=== PATIENT | male | born 1950 | race Caucasian/White ===

== ENCOUNTER 2016-03-07 02:43 | Emergency (ER) | payer MEDICARE, OTHER ==
--- NOTE | 2016-03-07 03:23 | Emergency Department Record ---
History of Present Illness - General Chief Complaint: Hypertension Stated Complaint: HIGH BP Time Seen by Provider: 03/07/16 03:09 Source: Patient Mode of Arrival: Ambulatory Limitations: No limitations - History of Present Illness Initial Comments: pt forgot to take his bp med 21hrs ago and awakened with a headache and found his bp to be over 200. rtoh was behind his eyes. by the time he got here his headache was getting better and his bp was coming down. pt denies any other symptoms MD Complaint: Dizziness Onset/Timin -: Minutes(s) Timing: Unsure, Gradual onset Description: Other History of Same: Yes History of Trauma: No Severity: Mild Improves With: Nothing Worsens With: Nothing Associated Symptoms: Denies other symptoms - [place] Coma Scale Eye Response: (4) Open spontaneously Motor Response: (6) Obeys commands Verbal Response: (5) Oriented [place] Total: 15 - Related Data Home Medications Medication Instructions Recorded Confirmed Last Taken Aspirin [Aspirin EC] 81 mg PO DAILY 03/09/14 03/07/16 03/28/14 Clopidogrel Bisulfate [Clopidogrel] 75 mg PO DAILY 03/09/14 03/07/16 03/28/14 Lisinopril [Lisinopril] 5 mg PO DAILY 03/09/14 03/07/16 03/28/14 Simvastatin [Simvastatin] 40 mg PO DAILY 03/09/14 03/07/16 03/28/14 Previous Rx's Medication Instructions Recorded Albuterol Sulfate [Proair Hfa] 1 - 2 puff IH .EVERY 4-6 HOURS PRN 03/28/14 #1 inhaler Allergies Allergy/AdvReac Type Severity Reaction Status Date / Time No Known Drug Allergies Allergy Verified 03/28/14 09:23 Travel Screening - Travel/Exposure Within Last 30 Days Have you traveled within the last 30 days?: No - Travel/Exposure Within Last Year Have you traveled outside the [place] in the last year?: No - Additonal Travel Details Have you been exposed to anyone with a communicable illness?: No - Travel Symptoms Symptom Screening: None Review of Systems Reviewed: No additional complaints except as noted below Constitutional: Reports: As per HPI. Denies: Chills, Fever, Malaise, Night sweats, Weakness, Weight change Eyes: Reports: As per HPI. Denies: Eye discharge, Eye pain, Photophobia, Vision change ENT: Reports: As per HPI. Denies: Congestion, Dental pain, Ear pain, Epistaxis , Hearing loss, Throat pain Respiratory: Reports: As per HPI. Denies: Cough, Dyspnea, Hemoptysis, Stridor, Wheezes Cardiovascular: Reports: As per HPI. Denies: Arrhythmia, Chest pain, Dyspnea on exertion, Edema, Murmurs, Orthopnea, Palpitations, Paroxysmal nocturnal dyspnea, Rheumatic Fever, Syncope Endocrine: Reports: As per HPI. Denies: Fatigue, Heat or cold intolerance, Polydipsia, Polyuria Gastrointestinal: Reports: As per HPI. Denies: Abdominal pain, Constipation, Diarrhea, Hematemesis, Hematochezia, Melena, Nausea, Vomiting Genitourinary: Reports: As per HPI. Denies: Dysuria, Frequency, Hematuria, Incontinence, Retention, Testicular pain, Testicular mass, Urgency Musculoskeletal: Reports: As per HPI. Denies: Arthralgia, Back pain, Gout, Joint swelling, Myalgia, Neck pain Skin: Reports: As per HPI. Denies: Bruising, Change in color, Change in hair/ nails, Lesions, Pruritus, Rash Neurological: Reports: As per HPI. Denies: Abnormal gait, Confusion, Headache, Numbness, Paresthesias, Seizure, Tingling, Tremors, Vertigo, Weakness Psychiatric: Reports: As per HPI. Denies: Anxiety, Auditory hallucinations, Depression, Homicidal thoughts, Suicidal thoughts, Visual hallucinations Hematological/Lymphatic: Reports: As per HPI. Denies: Anemia, Blood Clots, Easy bleeding, Easy bruising, Swollen glands Past Medical History - SOCIAL HISTORY Smoking Status: Former smoker Alcohol Use: None Drug Use: None - RESPIRATORY Hx Respiratory Disorders: No - CARDIOVASCULAR Hx Cardio Disorders: Yes Hx Deep Vein Thrombosis: Yes (1990-) Hx Hypertension: Yes Comment:: high cholesterol - NEURO Hx Neuro Disorders: No - GI Hx GI Disorders: Yes Hx Abdominal Pain: Yes (?muscular) Hx Reflux: Yes (Hx of) Hx of Polyps: Yes Comment:: constipation - Hx Genitourinary Disorders: No - ENDOCRINE Hx Endocrine Disorders: Yes Hx Diabetes: No Hx Thyroid Disease: Yes - MUSCULOSKELETAL Hx Musculoskeletal Disorders: Yes Hx Arthritis: Yes (right hip) - PSYCH Hx Psych Problems: No - HEMATOLOGY/ONCOLOGY Hx Hematology/Oncology Disorders: Yes Hx Cancer: Yes (testicular 1990) Hx Chemotherapy: Yes Hx Radiation Therapy: Yes Hx Clotting Problems: Yes (on plavix) Family Medical History Any Significant Family History?: Yes Hx Resp Disorders: Father *Resp Comment: emphysema (smoker) Hx Stroke: Brother/Sister Physical Exam - General General Appearance: Alert, Oriented x3, Cooperative, Mild distress - Head Head exam: Normal inspection - Eye Eye exam: Normal appearance, PERRL, Conjunctival injection, EOMI Pupils: Normal accommodation With correction: No (both:20/70) - ENT ENT exam: Normal exam, Mucous membranes moist, Normal external ear exam, Normal orophraynx, TM's normal bilaterally Ear exam: Normal external inspection. negative: External canal tenderness Nasal Exam: Normal inspection. negative: Discharge, Sinus tenderness Mouth exam: Normal external inspection, Tongue normal Teeth exam: Normal inspection. negative: Dental caries Throat exam: Normal inspection. negative: Tonsillar erythema, Tonsillar exudate - Neck Neck exam: Normal inspection, Full ROM. negative: Tenderness - Respiratory Respiratory exam: Normal lung sounds bilaterally. negative: Respiratory distress - Cardiovascular Cardiovascular Exam: Regular rate, Normal rhythm, Normal heart sounds - GI/Abdominal GI/Abdominal exam: Soft, Normal bowel sounds. negative: Tenderness - Rectal Rectal exam: Deferred - exam: Deferred - Extremities Extremities exam: Normal inspection, Full ROM, Normal capillary refill. negative: Tenderness - Back Back exam: Reports: Normal inspection, Full ROM. Denies: Muscle spasm, Rash noted, Tenderness - Neurological Neurological exam: Alert, CN II-XII intact, Normal gait, Oriented X3 - Psychiatric Psychiatric exam: Normal affect, Normal mood - Skin Skin exam: Dry, Intact, Normal color, Warm Course Vital Signs 03/07/16 02:48 Temperature 97.6 F Pulse Rate [ 80 Pulse Ox Probe] Respiratory 20 Rate Blood Pressure 182/102 [Left Arm] Blood Pressure 172/83 [Right Arm] Pulse Ox 99 - Reevaluation(s) Reevaluation #1: 03/07/16 03:25 when i went in to evaluate pt his symptoms had resolved and pt admits he just took his bp meds. he thought he had come in prematurely. i explained we would watch him for awhile and make sure he contd to feel well and hav a lower bp. he had labs done 3 days ago so new ones were unnecessary. Disposition Disposition: Discharge Clinical Impression: Hypertension Qualifiers: Hypertension type: essential hypertension Qualified Code(s): I10 - Essential ( primary) hypertension Disposition: Home, Self-Care Condition: (1) Good Instructions: Hypertension (ED) Additional Instructions: follow up with family doctor today. return sooner if worse. take meds as directed. monitor blood pressure Forms: Patient Portal Access
== END 2016-03-07 03:59 | disposition home or self-care (01) ==
LOC: ER 02:43
DX: I10 Essential (primary) hypertension (principal); R51 Headache; Z87.891 Personal history of nicotine dependence
CPT/HCPCS: 99282

== ENCOUNTER 2016-05-29 12:26 | Day surgery (SDC) | payer MEDICARE, OTHER ==
[2016-05-29] MEDS ORDERED: LIDOCAINE 2% MDV (20MG/ML) 20ML VIAL IV ONE (14:00)
[2016-05-29] MEDS ORDERED: FENTANYL PF 100MCG/2ML VIAL IV ONE (14:00)
[2016-05-29] MEDS ORDERED: PROPOFOL 10 MG/ML VIAL IV ONE (14:00)
--- NOTE | 2016-06-02 10:10 | Operative Note ---
DATE OF SURGERY: 05/29/2016 OPERATION: ESOPHAGOGASTRODUODENOSCOPY with biopsy. PREOPERATIVE DIAGNOSIS: Melena and anemia. POSTOPERATIVE DIAGNOSES: 1. Duodenal bulb ulcer. 2. Duodenal stricture at second portion of duodenum. PROCEDURE: After informed consent was obtained from the patient, he was placed in the left lateral decubitus position in the endoscopy suite. He was sedated and monitored by the department of anesthesia. Once sedated, a well-lubricated [id number] gastroscope was placed in the posterior oropharynx and under direct visualization passed to the proximal esophagus. The endoscope was advanced through the proximal, mid, and distal esophagus. The esophagus was unremarkable. No ulcers, erosions, strictures, varices, or mass lesions were seen. The gastric body demonstrated normal distensibility, normal rugal folds. The body and the antrum were unremarkable. No fresh or old blood or bleeding lesions were seen. J-turn views of the proximal stomach at this point were unremarkable as well. The endoscope was then advanced to the duodenal bulb. On the anterior wall of the duodenal bulb apex, there was noted to be a moderate-depth ulceration without stigmata of recent hemorrhage. The margin was crisp and clean. There were no pigmented spots or vessels or active bleeding seen. In the second portion of the duodenum, there was a circumferential stricture which would not allow passage of the endoscope. Inspection of the stricture did not show any obvious malignant changes. Antral biopsies and gastric body biopsies were obtained. No excessive bleeding was noted. The endoscope was removed from the patient with no new findings noted. RECOMMENDATIONS: The patient really should avoid any anti-inflammatory medicines and NSAIDs if possible. In the meantime, we will increase his Protonix to twice daily for a course of 8 weeks. We will repeat his upper endoscopy to assess healing, which is not typical but given the fact that he has been on his current medication, has been on a PPI and despite is having ulceration and has had bleeding, would recommend assess for healing. As always, thank you for allowing me to participate in the healthcare of your patients. Timothy Lopes DO CC: Nadege BARNES
== END 2016-05-29 14:44 | disposition home or self-care (01) ==
LOC: HOP 12:26
PROVIDERS: ATTEND Internal Medicine Gastroenterology
DX: K92.1 Melena (principal); D64.9 Anemia, unspecified; K26.9 Duodenal ulcer, unspecified as acute or chronic, without hemorrhage or perforation; K31.5 Obstruction of duodenum; I10 Essential (primary) hypertension; E03.9 Hypothyroidism, unspecified
CPT/HCPCS: 88305; 43239; 00740; J3010

== ENCOUNTER 2016-07-17 08:43 | Day surgery (SDC) | payer MEDICARE, OTHER ==
[2016-07-17] MEDS ORDERED: NALOXONE 0.4 MG/1 ML VIAL IVP ONE (13:21)
[2016-07-17] MEDS ORDERED: PROPOFOL 10 MG/ML VIAL IV ONE (13:21)
[2016-07-17] MEDS ORDERED: LIDOCAINE 2% MDV (20MG/ML) 20ML VIAL IV ONE (13:21)
[2016-07-17] MEDS ORDERED: FENTANYL PF 100MCG/2ML VIAL IV ONE (13:21)
--- NOTE | 2016-07-22 15:53 | Operative Note ---
DATE OF SURGERY: 07/17/2016 OPERATION: ESOPHAGOGASTRODUODENOSCOPY with biopsy. PREOPERATIVE DIAGNOSIS: History of duodenal stricture and duodenal ulcer. POSTOPERATIVE DIAGNOSES: 1. Persistent duodenal stricture in the second portion of the duodenum. 2. Healed duodenal bulb ulcer. PROCEDURE: After informed consent was obtained from the patient, he was placed in the left lateral decubitus position in the endoscopy suite, sedated and monitored by the department of anesthesia. A well-lubricated [id number] gastroscope was placed in the posterior oropharynx and under direct visualization passed to the proximal esophagus. The endoscope was advanced through the proximal, mid, and distal esophagus. The GE junction, esophagus, gastric body, and antrum as well as the pylorus were unremarkable. The duodenal bulb demonstrated healing of the previous ulceration. The second portion of the duodenum revealed a persistent stricture which was unable to be traversed. Part of the procedure, I discussed this matter with the patient who felt he was feeling well, did not have any symptoms and as a result it was decided no attempt at dilation would be performed. The stricture itself was biopsied for histology. I was able to peer through the stricture beyond the level of the stricture which appeared unremarkable. Photographs were taken. J-turn views of the proximal stomach were unremarkable. The endoscope was straightened and the antrum was again unremarkable. The endoscope removed from the patient with no new findings noted. The patient did have some brief desaturation requiring some bag assist ventilation with prompt improvement of his ventilation status. He was taken to the recovery area to be monitored. RECOMMENDATIONS: He is to continue his current medical program. If he has any recurrent issues with abdominal symptoms, I have asked him to contact me. In particular, we could consider dilating the stricture if necessary. As always, thank you for allowing me to participate in the healthcare of your patients. CC: ETHAN HASKINS D.O. MANDIE
== END 2016-07-17 11:21 | disposition home or self-care (01) ==
LOC: HOP 08:43
PROVIDERS: ATTEND Internal Medicine Gastroenterology
DX: K31.5 Obstruction of duodenum (principal); I10 Essential (primary) hypertension; Z86.718 Personal history of other venous thrombosis and embolism; E03.9 Hypothyroidism, unspecified; Z85.51 Personal history of malignant neoplasm of bladder
CPT/HCPCS: 43239; 00740; 88305; 93005; 93010; J3010; J2310